=== PATIENT | female | born 1980 | race Caucasian/White ===

== ENCOUNTER 2017-11-30 19:18 | Emergency (ER) | payer SELFPAY | END 2017-11-30 22:00 | disposition home or self-care (01) | LOC: FTE 19:18 | DX: S10.11XA Abrasion of throat, initial encounter (principal); R09.89 Other specified symptoms and signs involving the circulatory and respiratory systems; X58.XXXA Exposure to other specified factors, initial encounter; Y92.9 Unspecified place or not applicable | CPT/HCPCS: 71045; 99283-25 ==